=== PATIENT | male | born 1985 | race Caucasian/White ===

== ENCOUNTER 2016-10-18 08:58 | Observation (INO) | payer OTHER ==
[2016-10-17 11:41] VITALS: BMI 30.3
[2016-10-18] VITALS (14 sets, daily range): BP systolic 106–132; BP diastolic 64–88; PULSE 74–100; RESP 10–19; Ht 190.5 cm; Wt 106.2 kg
[~2016-10-18] VITALS: Ht 190.5 cm; Wt 106.2 kg
[~2016-10-18 08:58] MED LIST: CEFAZOLIN 2 GM/50 ML (PMX) 50 ML IVPB ONE
[2016-10-18] MEDS ORDERED: GABA300C16 PO (09:20)
[2016-10-18] MEDS ORDERED: MELO-110 PO (09:26)
[2016-10-18] MEDS ORDERED: CARI350T29 PO (09:27)
[2016-10-18] MEDS ORDERED: HYDR-902 PO (09:28)
[2016-10-18] MEDS ORDERED: HEPARIN 1000 UNITS/NS (A-LINE) 0 ML ONE (09:50)
[2016-10-18 09:59] LABS: ADD SCAN DIFF NO
[2016-10-18 10:07] LABS: BASOPHILS % 0.2 % (0.0-2.0); EOSINOPHILS # 0.1 10^3/ul (0.0-0.5); EOSINOPHILS % 1.2 % (0.0-7.0); HEMATOCRIT 44.5 % (42.0-52.0); HEMOGLOBIN 15.2 g/dl (14.0-18.0); LYMPHOCYTES # 1.8 10^3/ul (0.8-2.9); LYMPHOCYTES % 20.4 % (15.0-51.0); MEAN CORPUSCULAR HEMOGLOBIN 29.5 pg (29.0-33.0); MEAN CORPUSCULAR HGB CONC 34.2 g/dl (32.0-37.0); MEAN CORPUSCULAR VOLUME 86.2 fl (82.0-101.0); MEAN PLATELET VOLUME 9.9 fl (7.4-10.4); MONOCYTE # 1.1 10^3/ul (0.3-0.9); MONOCYTES % 11.8 % (0.0-11.0); NEUTROPHILS % 66.1 % (39.0-77.0); PLATELET COUNT 276 10^3/UL (140-415); RED BLOOD COUNT 5.16 10^6/ul (4.70-6.10); RED CELL DISTRIBUTION WIDTH 12.1 % (11.5-14.5)
[2016-10-18] MEDS ORDERED: LIDOCAINE 2% (SDV) 5 ML INJ ONE (10:14)
[2016-10-18] MEDS ORDERED: SUCCINYLCHOLINE CHLORIDE 100 MG/5 ML SYG IV ONE (10:14)
[2016-10-18] MEDS ORDERED: MIDAZOLAM 1 MG/ML 2 ML INJ ONE (10:14)
[2016-10-18] MEDS ORDERED: PROPOFOL 20 ML ONE ×2 (10:14→13:47)
[2016-10-18] MEDS ORDERED: FENTAnyl 50 MCG/ML VIAL ONE (10:15)
[2016-10-18] MEDS ORDERED: DIPHENHYDRAMINE 50 MG INJ IV PRN (10:30)
[2016-10-18] MEDS ORDERED: KETOROLAC 30 MG INJ IV ONE (10:30)
[2016-10-18] MEDS ORDERED: ONDANSETRON 4 MG INJ IV PRN ×2 (10:30→16:00)
[2016-10-18] MEDS ORDERED: hydrALAzine 20 MG INJ IV PRN (10:30)
[2016-10-18] MEDS ORDERED: PROCHLORPERAZINE 10 MG INJ IV PRN (10:30)
[2016-10-18] MEDS ORDERED: MEPERIDINE 25 MG INJ IV PRN (10:30)
[2016-10-18] MEDS ORDERED: METOCLOPRAMIDE 10 MG INJ IV PRN (10:30)
[2016-10-18] MEDS ORDERED: HYDROmorphONE (0.2 MG/ML) 10ML SYG IV PRN (10:30)
[2016-10-18] MEDS ORDERED: EPHEDrine SULFATE 50 MG/5 ML SYG IV PRN (10:30)
[2016-10-18] MEDS ORDERED: LABETALOL HCL 20MG INJ IV PRN (10:30)
[2016-10-18] MEDS ORDERED: OXYCODONE/ACETAMINOPHEN (5/325) TAB PO PRN ×2 (10:30)
[2016-10-18] MEDS ORDERED: GELATIN SIZE 100 SPONGE ONE (10:51)
[2016-10-18] MEDS ORDERED: BUPIVACAINE 0.5% (SDV) 30 ML INJ ONE (10:51)
[2016-10-18] MEDS ORDERED: LIDOCAINE 2%/EPI 30 ML INJ ONE (10:51)
[2016-10-18] MEDS ORDERED: VANCOMYCIN 1 GM INJ ONE (10:52)
[2016-10-18] MEDS ORDERED: POLYMYXIN/BACITRACIN 1L IRRIG ONE (10:52)
[2016-10-18] MEDS ORDERED: THROMBIN 5000 UNIT VIAL ONE (10:52)
[2016-10-18] MEDS ORDERED: METOCLOPRAMIDE 10 MG INJ ONE (12:14)
[2016-10-18] MEDS ORDERED: CEFAZOLIN 1 GM INJ ONE (12:14)
[2016-10-18] MEDS ORDERED: ONDANSETRON 4 MG INJ ONE ×2 (12:14→15:02)
[2016-10-18] MEDS ORDERED: DEXAMETHASONE 4 MG/ML 1 ML INJ ONE (12:14)
[2016-10-18] MEDS ORDERED: ROCURONIUM 50 MG INJ ONE (12:35)
[2016-10-18] MEDS ORDERED: ACETAMINOPHEN 1000MG/100ML IV 100 ML ONE (13:18)
[2016-10-18] MEDS ORDERED: HYDROmorphONE 2 MG/ML SYG ONE (13:19)
[2016-10-18] MEDS ORDERED: KETAMINE 500 MG INJ ONE (14:13)
--- NOTE | 2016-10-18 15:08 | RADRPT ---
PROCEDURE: Intraoperative imaging of the lumbar spine with fluoroscopy. CLINICAL INDICATION: Back pain. Intraoperative. TECHNIQUE: 6 images of the lumbar spine were obtained in the operating room with an image intensif ier. No radiologist was in attendance. Fluoroscopy time is 11.4 seconds. COMPARISON: No prior study is available for comparison. FINDINGS: The the patient has a transitional anatomy. Therefore, careful correlation with preoperative imagin g studies is required. Images demonstrate posterior surgical instruments overlying the lower lumbar spine. IMPRESSION: 1. Intraoperative imaging of the lumbar spine. RPTAT: QQ .Bobby Otero MD, MD Date Time Electronically viewed and signed by .Bobby Otero MD, on 10/18/2016 15:08 .R/
[2016-10-18] MEDS: HYDROmorphONE (0.2 MG/ML) 10ML SYG IV PRN ×6 (15:42→19:03)
[2016-10-18] MEDS: FENTAnyl 50 MCG/ML VIAL IV PRN ×2 (15:51→16:07)
--- NOTE | 2016-10-18 15:54 | OPR ---
Date/Time of Note Date/Time of Note DATE: 10/18/16 TIME: 15:51 Operative Report Preoperative Diagnosis 1. L5-S! herniated disc 2. L5-S! left radiculopathy. Postoperative Diagnosis 1. L5-S! herniated disc 2. L5-S! left radiculopathy. Operation/Procedure Performed Left L5-S1 microdiscectomy Surgeon: COLIN SANTOS MD bilingual office assistant: RADHA RIOS Anesthesia: general, other (Anesthesiologist: Eunice Burton MD) Estimated Blood Loss: minimal Specimens Herniated disc Grafts/Implants none Complications: None COLIN SANTOS MD Oct 18, 2016 15:54
[2016-10-18] MEDS ORDERED: CEPASTAT LOZENGE MT PRN (16:00)
[2016-10-18] MEDS ORDERED: HYDROCODONE/APAP (5/325) TAB PO PRN ×2 (16:00)
[2016-10-18] MEDS ORDERED: AL HYDROX/MG HYDROX/SIMETH 30 ML CUP PO PRN (16:00)
[2016-10-18] MEDS ORDERED: ACETAMINOPHEN 325 MG TAB PO PRN (16:00)
[2016-10-18] MEDS ORDERED: ZOLPIDEM 5 MG TAB PO PRN (16:00)
[2016-10-18] MEDS ORDERED: NACL 0.9% 3 ML SYG IV SCH (16:00)
[2016-10-18] MEDS ORDERED: NALOXONE (0.4 MG/ML) INJ IV PRN (16:00)
[2016-10-18] MEDS ORDERED: morphine 1 MG/ML 30 ML (PCA) IV SCH (16:00)
[2016-10-18] MEDS ORDERED: DIAZEPAM 5 MG TAB PO PRN (16:00)
[2016-10-18] MEDS: CEFAZOLIN 1 GM/50 ML (PMX) 50 ML IVPB SCH ×2 (18:50→23:38)
[2016-10-18] MEDS: RANITIDINE 150 MG TAB PO SCH (21:03)
[2016-10-19] VITALS: BP_SYST 112; BP_SYST 114; BP_DIAS 55; BP_DIAS 67; PULSE 80; RESP 18
[2016-10-19 04:00] VITALS: BP 109/64; PULSE 77; RESP 18
[2016-10-19] MEDS: CEFAZOLIN 1 GM/50 ML (PMX) 50 ML IVPB SCH ×2 (05:15→12:26)
[2016-10-19 07:00] VITALS: BP 115/69; RESP 20
[2016-10-19] MEDS: RANITIDINE 150 MG TAB PO SCH (07:18)
--- NOTE | 2016-10-19 07:44 | PN ---
Date/Time of Note Date/Time of Note DATE: 10/19/16 TIME: 07:42 Assessment/Plan Lines/Catheters IV C[facility]ter Type (from [facility]): Saline Lock Assessment/Plan Chief Complaint/Hosp Course POD # 1 s/p L5-S1 microdiscectomy. D/C GARAGE HAND. PT/ ambulate. Home after lunch. f/u in 2 weeks. Problems: Subjective 24 Hr Interval Summary Patient doing well. Only reports incisional LBP,. Denies LE radicular pain, weakness, fever, chills, nausea or vomiting Exam/Review of Systems Vital Signs Vitals Vital Signs Date Time Temp Pulse Resp B/P Pulse Ox O2 Delivery O2 Flow Rate FiO2 10/19/16 05:00 18 10/19/16 04:00 98.0 77 109/64 97 Room Air 10/18/16 15:52 2.0 Intake and Output 10/18/16 10/18/16 10/19/16 15:00 23:00 07:00 Intake Total 1700 ml 580 ml Output Total 400 ml Balance 1700 ml 180 ml Exam Constitutional: alert, oriented, well developed Musculoskeletal: nl extremities to inspection, nl gait and stance Neurological: FURNACE CHARGER II-XII intact, nl mental status, nl speech, nl strength Skin: other (incision dressed, clean, dry and intact.) Results Result Diagram: 10/18/16 0935 COLIN SANTOS MD Oct 19, 2016 07:44
[2016-10-19] MEDS ORDERED: KETOROLAC 30 MG INJ IV PRN (08:00)
[2016-10-19] MEDS ORDERED: DOCUSATE SODIUM 100 MG CAP PO SCH (09:00)
--- NOTE | 2016-10-19 13:47 | OPR ---
Date/Time of Note Date/Time of Note DATE: 10/19/16 TIME: 1346 Operative Report Procedure Date: Oct 18, 2016 Preoperative Diagnosis 1. L5-S1 herniated disc 2. L5-S1 left radiculopathy. Postoperative Diagnosis 1. L5-S1 herniated disc 2. L5-S1 left radiculopathy. Operation Performed Left L5-S1 microdiscectomy Surgeon: COLIN SANTOS MD home based assistant: RADHA RIOS Anesthesia: general, other (Anesthesiologist: Eunice Burton MD) Anesthesiologist: EUNICE BURTON MD Estimated Blood Loss: minimal Specimens Herniated disc Grafts/Implants none Complications: None Pt Condition Post Procedure: stable Disposition: PACU Indications Patient is a 31-year-old male with a history of lumbar radiculopathy for over 6 months. The patient reported some intermittent weakness as well as some saddle anesthesia. The symptoms did not constant and the patient does not currently have the symptoms but also had a severe radiculopathy. Patient had a very large disc herniation and given the symptoms in the duration of time that a pass , surgical treatment was recommended. The risks, benefits and alternatives of surgical intervention discussed patient elected for surgery. Operative\Procedure Findings The patient was brought to the OR. He was sedated, intubated, and anesthesia successfully induced. Sequential compression devices were placed to lower extremities. A Pineda catheter was placed. Perioperative antibiotics were given. Electrophysiologic monitoring with EMGs and SSEPs were performed during the case and baseline measurements established. The patient was placed in prone position on the operative table on an OSI table with a Clifford frame. All pressure points were checked for appropriate padding. Fluoroscopy was used to obtain the initial localization for the incision. After surgical timeout the procedure commenced. A 10 blade knife was used to make an incision over the L5 and S1 spinous processes. Bovie electrocautery was used to dissect the subcutaneous fat down to the bone and the spinous processes. Fluoroscopic confirmation of the appropriate level was confirmed and then Bovie electrocautery was used to dissect subperiosteally along the inferior aspect of the L5 spinous process and lamina to the medial aspect of facet joint and the superior aspect of the S1 spinous process and lamina to the medial facet joint. Ledbetter-type self- retaining retractors were placed. At this point the microscope was brought in for microdissection. A high-speed drill was used to perform a laminotomy of the inferior aspect of the L5 lamina and medial facet joint as well as the superior aspect of the S1 left lamina and superior set joint. Ligamentum flavum was then removed. The S1 nerve root was readily identified and there was a large bulge underneath it. At first, avascular membrane along with an expanded annulus fibrosis that had formed a pseudo capsule appeared contiguous with the S1 nerve root. This vascular membrane was removed and separation was achieved between the plane of this capsule/and nose in the nerve root and thecal sac. A tiny rent in the pseudo membrane was seen and contents consistent with nucleus pulposus were readily identified. Therefore, this rent was opened and herniated disc could be seen in the subcutaneous ligamentous sub-annular area. Pituitaries were then used to remove multiple pieces of disc. The nerve root. To be less taut and decompressed. This was a very large disc herniation that appeared chronic. It was significantly scarred with much intermittent inflammation. There also appeared to be a large part of the disc that had bulged out that was not a free fragment. This was significantly degenerative and the disc space was easily visible. Additional fragments that did not appear firmly attach were removed from the disc space. Overall that this was significantly degenerative but an attempt to preserve residual disc yet lower the risk of recurrent disc herniation, partially disc fragments were removed. Because the disc/annulus and performed a vascular membrane and could still be tethered to the thecal sac, aggressive further removal was not attempted to minimize risk of durotomy. The nerve root appeared to be decompressed definitely superiorly and laterally as the ligamentum flavum and adjacent structures had and inferiorly more of this bulging structure had been decompressed. Confident with the decompression, the wound was copiously irrigated with bacitracin irrigation until it came forth clear after hemostasis was achieved with bipolar electrocautery. The self-retaining retractors microscope were removed from the surgical field. The incision was then closed using 0 Vicryl sutures in the fascia, 2-0 interrupted Vicryl sutures in the subcutaneous layer , 3-0 interrupted Vicryl sutures in the subcuticular layer then a running 4-0 Monocryl sutures was used to closed the subcuticular layer. Dermabond synthetic skin adhesive was placed on the incision, allowed to dry then a sterile dressing applied. The patient was taken off the table and taken to recovery. Sponge, needle and cottonoid count was reported correct at the end of the case. Electrophysiologic potentials were reported to remain stable throughout the case. COLIN SANTOS MD Oct 19, 2016 13:46
== END 2016-10-19 13:00 | disposition home or self-care (01) ==
LOC: REC 08:58 → INTOOBSV 08:58 → MS1 20:30
PROVIDERS: ADMIT Neurological Surgery; ATTEND Neurological Surgery
DX: M51.17 Intervertebral disc disorders with radiculopathy, lumbosacral region (principal); E66.9 Obesity, unspecified; Z68.29 Body mass index [BMI] 29.0-29.9, adult
CPT/HCPCS: 63030; 72110; 85025; 86850; 86900; 86901; 88304; 97161; J0131; J0690; J1100; J1170; J1644; J1885; J2175; J2250; J2270; J2405; J2765; J3010; J3370; J7999; Z7500; Z7512; Z7610; G0378